=== PATIENT | male | born 1965 | race Caucasian/White ===

== ENCOUNTER 2017-02-14 18:36 | Emergency (ER) | payer OTHER ==
[~2017-02-14] VITALS: Ht 177.8 cm; Wt 101.6 kg
[2017-02-14 19:27] VITALS: BP 136/80
== END 2017-02-14 19:27 | disposition home or self-care (01) ==
LOC: ED 18:36
DX: S39.012A Strain of muscle, fascia and tendon of lower back, initial encounter (principal); V53.5XXA Driver of pick-up truck or van injured in collision with car, pick-up truck or van in traffic accident, initial encounter; Y93.89 Activity, other specified; Y92.89 Other specified places as the place of occurrence of the external cause; Y99.8 Other external cause status
CPT/HCPCS: J1885; J7512

== ENCOUNTER 2017-06-20 15:27 | Inpatient (IN) | payer OTHER ==
[~2017-06-20] VITALS: Ht 177.8 cm; Wt 106.6 kg
[2017-06-20 15:33] VITALS: Ht 177.8 cm; Wt 106.6 kg
[2017-06-20 16:31] LABS: CALCIUM 7.9 mg/dL (8.5-10.1); CARBON DIOXIDE 21.8 mmol/L (21-32); CHLORIDE SERUM 107 mmol/L (98-107); CREATININE SERUM 0.9 mg/dL (0.7-1.3); GFR1 > 60 mL/min; GLUCOSE SERUM 114 mg/dL (74-106); SODIUM SERUM 141 mmol/L (136-145)
[2017-06-20 16:35] LABS: ALBUMIN 3.5 g/dL (3.4-5.0); ALKALINE PHOSPHATASE 60 U/L (46-116); BILIRUBIN TOTAL 0.4 mg/dL (0.20-1.00); TOTAL PROTEIN, SERUM 6.7 g/dL (6.4-8.2)
[2017-06-20 16:45] LABS: BASOPHIL % 0.7 % (0-2); PLATELET COUNT 257 x10^3mcL (130-400); RED CELL DISTRIBUTION WIDTH 13.3 % (11.5-14.5)
[2017-06-20 16:54] LABS: CHOLESTEROL 214 mg/dL (<200)
[2017-06-20 17:33] LABS: AST/SGOT 37 U/L (15-37)
[2017-06-20 17:45] LABS: ALT/SGPT 35 U/L (16-63)
[2017-06-20 19:43] VITALS: BP 144/74
[2017-06-20 19:47] LABS: AMYLASE 56 U/L (25-115); LIPASE 194 IU/L (73-393); MAGNESIUM 2.1 mg/dL (1.8-2.4); PHOSPHOROUS 2.8 mg/dL (2.5-4.9)
[2017-06-20 19:48] LABS: CHOLESTEROL 206 mg/dL (<200); CHOLESTEROL/HDL RATIO 6.6; HDL CHOLESTEROL 31 mg/dL (40-60); TRIGLYCERIDES 651 mg/dL (<150)
[2017-06-20 19:58] LABS: T3 TOTAL 1.08 ng/mL
[2017-06-20 19:59] LABS: FREE T4 0.8 ng/dL (0.76-1.46); FREE THYROXINE INDEX 1.8 ug/dL (1.4-4.5); T4(THYROXINE) 5.4 ug/dL (4.7-13.3)
[2017-06-21 05:27] VITALS: BP 98/62
[2017-06-21 06:38] LABS: BASOPHIL % 0.5 % (0-2); PLATELET COUNT 220 x10^3mcL (130-400); RED CELL DISTRIBUTION WIDTH 13.9 % (11.5-14.5)
[2017-06-21 07:06] LABS: CARBON DIOXIDE 25.5 mmol/L (21-32); CHLORIDE SERUM 111 mmol/L (98-107); CREATININE SERUM 0.9 mg/dL (0.7-1.3); GFR1 > 60 mL/min; GLUCOSE SERUM 96 mg/dL (74-106); POTASSIUM SERUM 4.3 mmol/L (3.5-5.1); SODIUM SERUM 143 mmol/L (136-145)
[2017-06-21 09:07] VITALS: BP 135/89
[2017-06-21] MEDS ORDERED: LIPI10 PO (11:14)
[2017-06-21] MEDS ORDERED: COL100 PO (11:15)
[2017-06-21 11:18] LABS: microscopic required? NO
[2017-06-21] MEDS ORDERED: FIORICET1 CAP PO (11:22)
[2017-06-21 11:28] LABS: UA SPECIFIC GRAVITY >=1.030 (1.005-1.035); urine erythrocyte NEGATIVE (NEGATIVE)
[2017-06-21] MEDS ORDERED: BAYER ASPIRIN R81 MG PO (11:47)
[2017-06-21 12:37] LABS: AMPHETAMINE QUAL UR NONE DETECTED (NEG <=1000)
[2017-06-21 13:06] VITALS: BP 127/86
[2017-06-21 14:17] VITALS: BP 127/86
== END 2017-06-21 14:34 | disposition home or self-care (01) | DRG 47 ==
LOC: ED 15:27 → DU 18:41
PROVIDERS: Family Medicine; Specialist
DX: G45.9 Transient cerebral ischemic attack, unspecified (principal); I42.0 Dilated cardiomyopathy; E83.51 Hypocalcemia; G90.8 Other disorders of autonomic nervous system; I08.1 Rheumatic disorders of both mitral and tricuspid valves; G89.29 Other chronic pain; M54.89 Other dorsalgia; E78.2 Mixed hyperlipidemia; K44.9 Diaphragmatic hernia without obstruction or gangrene; K59.00 Constipation, unspecified; G44.209 Tension-type headache, unspecified, not intractable; Z23 Encounter for immunization
CPT/HCPCS: 83880; 84439; 90658; G0480; J1885; J2270; J2550; J3010; J7030; Q0092; Q0162

== ENCOUNTER 2018-02-09 17:23 | Emergency (ER) | payer OTHER ==
[~2018-02-09] VITALS: Ht 180.3 cm; Wt 90.0 kg
[~2018-02-09 17:23] MED LIST: BAYER ASPIRIN R81 MG PO; COL100 PO; FIORICET1 CAP PO; LIPI10 PO
[2018-02-09 18:44] VITALS: BP 139/89
== END 2018-02-09 18:44 | disposition home or self-care (01) ==
LOC: ED 17:23
DX: G57.62 Lesion of plantar nerve, left lower limb (principal); F90.9 Attention-deficit hyperactivity disorder, unspecified type; R11.10 Vomiting, unspecified; R19.7 Diarrhea, unspecified; Z98.890 Other specified postprocedural states

== ENCOUNTER 2018-03-13 18:25 | Emergency (ER) | payer OTHER ==
[~2018-03-13] VITALS: Ht 177.8 cm; Wt 102.1 kg
[2018-03-13 18:41] VITALS: Ht 177.8 cm; Wt 102.1 kg
[2018-03-13 21:09] VITALS: BP 103/76
== END 2018-03-13 21:09 | disposition home or self-care (01) ==
LOC: ED 18:25
DX: J01.90 Acute sinusitis, unspecified (principal); B34.9 Viral infection, unspecified

== ENCOUNTER 2018-04-21 16:37 | Emergency (ER) | payer OTHER ==
[~2018-04-21] VITALS: Ht 177.8 cm; Wt 102.2 kg
[2018-04-21 16:56] VITALS: Ht 177.8 cm; Wt 102.2 kg
[2018-04-21 22:12] VITALS: BP 140/98
== END 2018-04-21 22:12 | disposition home or self-care (01) ==
LOC: ED 16:37
DX: R51 Headache (principal); E78.00 Pure hypercholesterolemia, unspecified; F90.9 Attention-deficit hyperactivity disorder, unspecified type
CPT/HCPCS: Q0162

== ENCOUNTER 2018-05-08 16:28 | Emergency (ER) | payer OTHER ==
[~2018-05-08] VITALS: Ht 177.8 cm; Wt 102.5 kg
[2018-05-08 16:50] VITALS: Ht 177.8 cm; Wt 102.5 kg
[2018-05-08 21:19] VITALS: BP 143/75
== END 2018-05-08 21:19 | disposition home or self-care (01) ==
LOC: ED 16:28
DX: M54.9 Dorsalgia, unspecified (principal); R03.0 Elevated blood-pressure reading, without diagnosis of hypertension; I10 Essential (primary) hypertension; E78.00 Pure hypercholesterolemia, unspecified; Z86.59 Personal history of other mental and behavioral disorders
CPT/HCPCS: J1885

== ENCOUNTER 2018-07-26 15:35 | Emergency (ER) | payer OTHER ==
[~2018-07-26] VITALS: Ht 180.3 cm; Wt 101.2 kg
[2018-07-26 15:42] VITALS: Ht 180.3 cm; Wt 101.2 kg
[2018-07-26 18:25] LABS: BASOPHIL % 0.6 % (0-2); PLATELET COUNT 254 x10^3mcL (130-400); RED CELL DISTRIBUTION WIDTH 13.8 % (11.5-14.5)
[2018-07-26 18:31] LABS: CALCIUM 8.6 mg/dL (8.5-10.1); CHLORIDE SERUM 106 mmol/L (98-107); GFR1 > 60 mL/min; GLUCOSE SERUM 105 mg/dL (74-106); POTASSIUM SERUM 3.9 mmol/L (3.5-5.1); SODIUM SERUM 141 mmol/L (136-145)
[2018-07-26 18:36] LABS: ALBUMIN 3.7 g/dL (3.4-5.0); ALKALINE PHOSPHATASE 69 U/L (46-116); ALT/SGPT 57 U/L (16-63); AMYLASE 60 U/L (25-115); AST/SGOT 28 U/L (15-37); BILIRUBIN TOTAL 0.26 mg/dL (0.20-1.00); LIPASE 169 IU/L (73-393); TOTAL PROTEIN, SERUM 7.1 g/dL (6.4-8.2)
[2018-07-26 19:58] VITALS: BP 137/96
== END 2018-07-26 19:58 | disposition home or self-care (01) ==
LOC: ED 15:35
PROVIDERS: Specialist
DX: N28.1 Cyst of kidney, acquired (principal); I10 Essential (primary) hypertension; E78.00 Pure hypercholesterolemia, unspecified; Z86.73 Personal history of transient ischemic attack (TIA), and cerebral infarction without residual deficits; Z98.890 Other specified postprocedural states
CPT/HCPCS: 36415

== ENCOUNTER 2018-10-09 14:45 | Emergency (ER) | payer OTHER ==
[~2018-10-09] VITALS: Ht 180.3 cm; Wt 100.2 kg
[2018-10-09 15:14] LABS: BASOPHIL % 0.6 % (0-2); PLATELET COUNT 325 x10^3mcL (130-400); RED CELL DISTRIBUTION WIDTH 13.4 % (11.5-14.5)
[2018-10-09 15:21] LABS: CALCIUM 9.1 mg/dL (8.5-10.1); CARBON DIOXIDE 26.8 mmol/L (21-32); CHLORIDE SERUM 107 mmol/L (98-107); CREATININE SERUM 1.1 mg/dL (0.7-1.3); GFR1 > 60 mL/min; GLUCOSE SERUM 125 mg/dL (74-106); POTASSIUM SERUM 4.4 mmol/L (3.5-5.1); SODIUM SERUM 144 mmol/L (136-145)
[2018-10-09 15:26] LABS: ALBUMIN 3.9 g/dL (3.4-5.0); ALKALINE PHOSPHATASE 69 U/L (46-116); ALT/SGPT 67 U/L (16-63); AST/SGOT 21 U/L (15-37); BILIRUBIN TOTAL 0.3 mg/dL (0.20-1.00); TOTAL PROTEIN, SERUM 7.4 g/dL (6.4-8.2)
[2018-10-09 17:41] VITALS: BP 135/77
== END 2018-10-09 17:41 | disposition home or self-care (01) ==
LOC: ED 14:45
DX: K21.9 Gastro-esophageal reflux disease without esophagitis (principal); I10 Essential (primary) hypertension; E78.00 Pure hypercholesterolemia, unspecified; Z98.890 Other specified postprocedural states
CPT/HCPCS: 36415; J1885; Q0092; Q0162

== ENCOUNTER 2019-04-19 15:28 | Inpatient (IN) | payer OTHER ==
[~2019-04-19] VITALS: Ht 177.8 cm; Wt 101.6 kg
[2019-04-19 15:35] VITALS: Ht 177.8 cm; Wt 101.6 kg
[2019-04-19 16:38] LABS: BASOPHIL % 0.6 % (0-2); PLATELET COUNT 314 x10^3mcL (130-400); RED CELL DISTRIBUTION WIDTH 14.4 % (11.5-14.5)
[2019-04-19 16:48] LABS: CALCIUM 8.8 mg/dL (8.5-10.1); CARBON DIOXIDE 25.7 mmol/L (21-32); CHLORIDE SERUM 106 mmol/L (98-107); CREATININE SERUM 0.9 mg/dL (0.7-1.3); GFR1 > 60 mL/min; GLUCOSE SERUM 110 mg/dL (74-106); POTASSIUM SERUM 3.9 mmol/L (3.5-5.1); SODIUM SERUM 140 mmol/L (136-145)
[2019-04-19 16:53] LABS: ALBUMIN 3.7 g/dL (3.4-5.0); ALKALINE PHOSPHATASE 45 U/L (46-116); ALT/SGPT 59 U/L (16-63); AST/SGOT 21 U/L (15-37); BILIRUBIN TOTAL 0.4 mg/dL (0.20-1.00); TOTAL PROTEIN, SERUM 7.1 g/dL (6.4-8.2)
[2019-04-19] MEDS ORDERED: LISINOPRIL10 MG PO (19:32)
[2019-04-19] MEDS ORDERED: DICLOFENAC SODI50 MG PO (19:33)
[2019-04-19] MEDS ORDERED: ZANTAC 300300 MG PO (19:35)
[2019-04-19 20:33] VITALS: BP 144/75
[2019-04-20 05:26] VITALS: BP 123/72
[2019-04-20 07:29] LABS: BASOPHIL % 0.7 % (0-2); PLATELET COUNT 318 x10^3mcL (130-400)
[2019-04-20 07:30] LABS: RED CELL DISTRIBUTION WIDTH 14.7 % (11.5-14.5)
[2019-04-20 08:30] VITALS: BP 130/86
[2019-04-20 08:54] LABS: ERYTHROCYTE SED RATE 6 mm/hr (0-20)
[2019-04-20 09:43] LABS: T4(THYROXINE) 7.1 ug/dL (4.7-13.3)
[2019-04-20 17:04] VITALS: BP 135/85
[2019-04-21 06:06] LABS: RAPID PLASMA REAGIN Non Reactive (Non Reactive)
[2019-04-21 09:05] LABS: RHEUMATOID ARTHRITIS FACTOR <10.0 IU/mL (0.0-13.9)
== END 2019-04-20 19:42 | disposition left against medical advice (07) | DRG 45 ==
LOC: ED 15:28 → DU 19:09
PROVIDERS: Student in an Organized Health Care Education/Training Program; ADMIT Internal Medicine
DX: I63.9 Cerebral infarction, unspecified (principal); G62.9 Polyneuropathy, unspecified; E78.00 Pure hypercholesterolemia, unspecified; I10 Essential (primary) hypertension; E78.5 Hyperlipidemia, unspecified; M60.9 Myositis, unspecified; Z53.21 Procedure and treatment not carried out due to patient leaving prior to being seen by health care provider; Z79.899 Other long term (current) drug therapy
CPT/HCPCS: 86431; 90658; G0378; Q0092